=== PATIENT | male | born 1985 | race Caucasian/White ===

== ENCOUNTER 2022-08-29 06:46 | Inpatient (IN) | payer OTHER, SELFPAY ==
[2022-08-29] VITALS (8 sets, daily range): BP systolic 114–168; BP diastolic 68–89; PULSE 72–98; RESP 16–20; TEMP 36.3–37; O2SAT 97–100; BMI 21.6
--- NOTE | ~2022-08-29 | CT_ITS ---
EXAMINATION: CT HEAD WITHOUT CONTRAST CLINICAL INFORMATION: Mental status change COMPARISON: None available. TECHNIQUE: Contiguous axial imaging was performed from the skull base to vertex without intravenous administration of contrast. This CT examination was performed using dose optimization techniques as appropriate, variously including the following: *Automated exposure control *Adjustment of mA and/or kV according to patient size (this includes techniques or standardized protocols for targeted exams where dose is matched to indication/reason for exam; i.e. extremities or head) *Use of iterative reconstruction technique DLP: 709 mGy-cm FINDINGS: No intracranial hemorrhage is identified. No significant mass effect or midline structure shift is seen. No abnormal extra-axial fluid collection is noted. The lerner-white matter interface is maintained. The ventricles, sulci, and cisterns appear unremarkable. The calvarium is intact. There is some edema seen within the left frontal scalp. Pterygoid plates intact. Temporomandibular joints appear unremarkable. Visualized paranasal sinuses and mastoid air cells appear unremarkable. CT/CT head/brain wo IV con IMPRESSION: No acute intracranial pathology.
--- NOTE | 2022-08-29 07:09 | ED_ITS ---
HPI - Psych General Chief Complaint: Psychiatric Symptoms Stated Complaint: hallucinations Time Seen by Provider: 08/29/22 06:49 History of Present Illness HPI Narrative: This is 37 yo man with alcohol abuse sent by [facility] because hallucination,denies SI and HI.Arrive awake and alert pleasent,coopoerative with stable VS,the hallucination are visual,he has been at [facility] 2 days complaint: hallucinations Onset (ago): day(s) (1) Duration: intermittent History of same: No Relieving factors: none Exacerbating factors: none Context: other (last drinl 5 Days ago) Associated psychiatric symptoms: none Related Data Home Medications Medication Instructions Recorded Confirmed No Known Home Meds 08/29/22 08/29/22 Allergies Allergy/AdvReac Type Severity Reaction Status Date / Time No Known Allergies Allergy Verified 08/29/22 07:10 Review of Systems Constitutional: Constitutional: Reports no additional constitutional complaints ENT: Reports system reviewed and no additional complaints, except as documented Cardiovascular: Cardiovascular: Denies irregular heart rhythm and Denies dyspnea Respiratory: Respiratory: Denies dyspnea Gastrointestinal: Gastrointestinal: Denies abdominal pain, Denies nausea and Denies vomiting Musculoskeletal: Musculoskeletal: Reports no additional musculoskeletal complaints [facility] Past Medical History [facility] Narrative: Alcohol Use disorder Social History Social History Alcohol intake: current Alcohol intake frequency: 0-2 drinks per day Alcohol ty pe: beer Smoked in Last 30 Days: Yes Use of substances other than those prescribed or required for medical reasons: No Advance Directives: No Physical Exam Vital Signs: Vital Signs: Last Vital Signs Temp 98.5 F 08/29/22 06:50 Pulse 87 08/29/22 10:42 Resp 18 08/29/22 10:42 BP 134/89 08/29/22 10:42 Pulse Ox 100 08/29/22 10:42 O2 Del Method Room Air 08/29/22 10:42 BMI result Body Mass Index 21.6 Const: General: cooperative, comfortable, no acute distress, well developed, alert, awake and Physically active Nutritional Appearance: average body habitus and well nourished Orientation/consciousness: patient oriented x3 Limitations: no limitations HEENT: Head: Yes normal to inspection General nose exam: Normal external nose present Face and sinus: Yes normal facial exam Neck: Neck: Yes normal visual inspection and Yes full ROM Thyroid: Thyroid normal Chest: Chest palpation & inspection: normal inspection of the chest Resp: Effort & Inspection: normal respiratory effort Auscultation: clear to auscultation bilaterally Cardio: Jugular venous distension: no JVD Rate: regular rate Rhythm: regular rhythm GI: Inspection: Yes normal to inspection Palpation (GI): Soft to palpation, not firm, nontender and no guarding Auscultation: normal bowel sounds Skin: General skin exam: no rashes or lesions noted and elasticity normal Neuro: General: patient oriented x3 Cranial nerves: Yes CN's II-XII intact bilaterally Course Reevaluation(s) Reevaluation #1: getting more agitated ,uncoperative ,transfererred to core ED,will start phenobarbital Time: 11:52 Medications Administered Discontinued Medications Generic Name Dose Route Start Last Admin Trade Name Freq PRN Reason Stop Dose Admin Diphenhydramine HCl 50 mg 08/29/22 11:43 08/29/22 11:51 Diphenhydramine Hcl 50 Mg/Ml Vial IM 08/29/22 11:44 50 mg ONCE ONE Administration Haloperidol Lactate 10 mg 08/29/22 11:43 08/29/22 11:51 Haloperidol Lactate 5 Mg/Ml Vial IM 08/29/22 11:44 10 mg STAT STA Administration Lorazepam 1 mg 08/29/22 07:15 08/29/22 07:24 Lorazepam 1 Mg Tablet PO 08/29/22 07:16 1 mg ONCE ONE Administration Medical Decision Making Medical Decision Making [facility] Narrative: pt presented with visual hallucination,stable Vital sign,this could be part of alcohol detox,he is no SI,no HI ,vital stable,will checl labs and consult crisis team Differential Diagnosis Differential Diagnoses: The differential diagnosis associated with the pr esentation includes Alcohol withdrawal/detox/psycosis Lab Data 08/29/22 07:30 08/29/22 07:30 Labs: Lab Results 08/29/22 08/29/22 08/29/22 Range/Units 07:10 07:30 07:30 WBC 5.8 (4.8-10.8) X10*3/uL RBC 3.82 L (4.60-5.80) X10*6/uL Hgb 11.9 L (14.0-18.0) g/dl Hct 35.5 L (42.0-52.0) % MCV 92.9 (80.0-98.0) fL MCH 31.2 (27.0-33.0) pg MCHC 33.5 (31.0-36.0) g/dl RDW 13.7 (11.0-16.0) % Plt Count 160 (160-400) X10*3/uL MPV 11.4 (9.4-12.4) fL Immature Gran % (Auto) 0.3 (0.0-0.4) % Neut % (Auto) 60.7 (45-73) % Lymph % (Auto) 20.1 (20-40) % [place] % (Auto) 13.9 H (2-11) % Eos % (Auto) 3.8 (0-4) % Baso % (Auto) 1.2 (0-2) % Lymph # (Auto) 1.2 (1.2-4.9) X10*3/uL [place] # (Auto) 0.8 (0.1-1.2) X10*3/uL Eos # (Auto) 0.2 (0.0-0.4) X10*3/uL Baso # (Auto) 0.1 (0.0-0.2) X10*3/uL Abs Immat Gran (auto) 0.02 (0.00-0.03) X10*3/uL Absolute Neuts (auto) 3.5 (2.0-8.3) x10*3/uL Absolute Nucleated RBC 0.000 (0.0-0.012) X10*3/uL Nucleated RBC % (auto) 0.0 (0.0-0.2) /100WBC Sodium 136 (135-145) mmol/L Potassium 4.3 (3.3-5.1) mmol/L Chloride 105 (96-108) mmol/L Carbon Dioxide 21 L (22-29) mmol/L Anion Gap 14 (12-20) BUN 10 (9-16) mg/dL Creatinine 0.70 (0.5-1.4) mg/dL Estim Creat Clear Calc 145.0 Estimated GFR > 60 Random Glucose 93 (60-115) mg/dL Calcium 9.0 (8.4-10.2) mg/dL Total Bilirubin 2.4 H (0.0-1.0) mg/dL AST 188 H (5-37) U/L ALT 79 H (0-40) U/L Alkaline Phosphatase 218 H (39-117) U/L Total Protein 7.9 (6.5-8.0) g/dL Albumin 4.0 (3.5-5.0) g/dL Urine Color Urine Appearance Urine pH (5.0-9.0) Ur Specific [place] (1.005-1.025) Urine Protein (Neg-Trace) mg/dL Urine Glucose (UA) (Negative) mg/dL Urine Ketones (Negative) mg/dL Urine Blood (Negative) Urine Nitrite (Negative) Ur Leukocyte Esterase (Negative) Urine RBC (0-2) /HPF Urine WBC (0-5) /HPF Ur Squamous Epith Cells (0-2) /HPF Urine Bacteria (None Seen) Hyaline Casts (0-2) /LPF Urine Opiates Screen (Not Detect) Urine Fentanyl Screen (Not Detect) Ur Barbiturates Screen (Not Detect) Ur Phencyclidine Scrn (Not Detect) Ur Amphetamines Screen (Not Detect) U Benzodiazepines Scrn (Not Detect) Urine Cocaine Screen (Not Detect) U Marijuana (THC) Screen (Not Detect) Ethyl Alcohol < 10 mg/dL COVID-19 (NEELAM) Negative (Negative) COVID-19 Clin Com See Note 08/29/22 08/29/22 Range/Units 09:09 09:09 WBC (4.8-10.8) X10*3/uL RBC (4.60-5.80) X10*6/uL Hgb (14.0-18.0) g/dl Hct (42.0-52.0) % MCV (80.0-98.0) fL MCH (27.0-33.0) pg MCHC (31.0-36.0) g/dl RDW (11.0-16.0) % Plt Count (160-400) X10*3/uL MPV (9.4-12.4) fL Immature Gran % (Auto) (0.0-0.4) % Neut % (Auto) (45-73) % Lymph % (Auto) (20-40) % [place] % (Auto) (2-11) % Eos % (Auto) (0-4) % Baso % (Auto) (0-2) % Lymph # (Auto) (1.2-4.9) X10*3/uL [place] # (Auto) (0.1-1.2) X10*3/uL Eos # (Auto) (0.0-0.4) X10*3/uL Baso # (Auto) (0.0-0.2) X10*3/uL Abs Immat Gran (auto) (0.00-0.03) X10*3/uL Absolute Neuts (auto) (2.0-8.3) x10*3/uL Absolute Nucleated RBC (0.0-0.012) X10*3/uL Nucleated RBC % (auto) (0.0-0.2) /100WBC Sodium (135-145) mmol/L Potassium (3.3-5.1) mmol/L Chloride (96-108) mmol/L Carbon Dioxide (22-29) mmol/L Anion Gap (12-20) BUN (9-16) mg/dL Creatinine (0.5-1.4) mg/dL Estim Creat Clear Calc Estimated GFR Random Glucose (60-115) mg/dL Calcium (8.4-10.2) mg/dL Total Bilirubin (0.0-1.0) mg/dL AST (5-37) U/L ALT (0-40) U/L Alkaline Phosphatase (39-117) U/L Total Protein (6.5-8.0) g/dL Albumin (3.5-5.0) g/dL Urine Color Dark Yellow Urine Appearance Clear Urine pH 8.0 (5.0-9.0) Ur Specific [place] 1.020 (1.005-1.025) Urine Protein Negative (Neg-Trace) mg/dL Urine Glucose (UA) Negative (Negative) mg/dL Urine Ketones Negative (Negative) mg/dL Urine Blood Negative (Negative) Urine Nitrite Negative (Negative) Ur Leukocyte Esterase Trace H (Negative) Urine RBC 0-2 (0-2) /HPF Urine WBC 0-5 (0-5) /HPF Ur Squamous Epith Cells 0-2 (0-2) /HPF Urine Bacteria None Seen (None Seen) Hyaline Casts 0-2 (0-2) /LPF Urine Opiates Screen Not Detected (Not Detect) Urine Fentanyl Screen Not Detected (Not Detect) Ur Barbiturates Screen Not Detected (Not Detect) Ur Phencyclidine Scrn Not Detected (Not Detect) Ur Amphetamines Screen Not Detected (Not Detect) U Benzodiazepines Scrn POSITIVE H (Not Detect) Urine Cocaine Screen POSITIVE H (Not Detect) U Marijuana (THC) Screen POSITIVE H (Not Detect) Ethyl Alcohol mg/dL COVID-19 (NEELAM) (Negative) COVID-19 Clin Com Discharge Plan Discharge Clinical Impression: Alcohol withdrawal Patient Disposition: Admitted As Inpatient Interventions: [place]-Suicide Risk Severity Scale Last Done: 08/29/22 06:59
[2022-08-29] MEDS: LORazepam 1 MG TABLET PO ×2 (07:24→18:19)
[2022-08-29 07:29] LABS: COVID-19 Test Negative (Negative); IDNOW Serial# 08D9AD1C
[2022-08-29 07:33] LABS: MANUAL DIFF FLAG NO
[2022-08-29 07:36] LABS: Basophils Absolute Auto 0.1 X10*3/uL (0.0-0.2); Basophils Percent Auto 1.2 % (0-2); Eosinophils Absolute Auto 0.2 X10*3/uL (0.0-0.4); Eosinophils Percent Auto 3.8 % (0-4); Hematocrit 35.5 % (42.0-52.0); Hemoglobin 11.9 g/dl (14.0-18.0); Imm Gran Abs Auto 0.02 X10*3/uL (0.00-0.03); Imm Gran Pct Auto 0.3 % (0.0-0.4); Lymphocytes Absolute Auto 1.2 X10*3/uL (1.2-4.9); Lymphocytes Percent Auto 20.1 % (20-40); Mean Corpuscular HGB Conc 33.5 g/dl (31.0-36.0); Mean Corpuscular Hemoglobin 31.2 pg (27.0-33.0); Mean Corpuscular Volume 92.9 fL (80.0-98.0); Mean Platelet Volume 11.4 fL (9.4-12.4); Monocytes Absolute Auto 0.8 X10*3/uL (0.1-1.2); Monocytes Percent Auto 13.9 % (2-11); Neutrophils Absolute Auto 3.5 x10*3/uL (2.0-8.3); Neutrophils Percent Auto 60.7 % (45-73); Platelet Count 160 X10*3/uL (160-400); Red Blood Count 3.82 X10*6/uL (4.60-5.80); Red Cell Distribution Width 13.7 % (11.0-16.0); White Blood Count 5.8 X10*3/uL (4.8-10.8)
--- NOTE | 2022-08-29 07:41 | PC.NURSE ---
Pt is alert and oriented. Appears sl tremors but reports feeling great denies hallucinations, SI or HI at this time. Last ETOH last Thursday, sent from [facility]. Denies home meds. [facility] called to confirm meds as they confirm pt had no home meds just taking PRN meds given by facility for detox. Spoke to Valentina HIGH. Pt is calm and cooperative, eating breakfast at this time
[2022-08-29 08:07] LABS: Alanine Aminotransferase 79 U/L (0-40); Alkaline Phosphatase 218 U/L (39-117); Anion Gap 14 (12-20); Aspartate Amino Transferase 188 U/L (5-37); Bilirubin Total 2.4 mg/dL (0.0-1.0); Blood Urea Nitrogen 10 mg/dL (9-16); Carbon Dioxide 21 mmol/L (22-29); Chloride 105 mmol/L (96-108); Estimated Glomerular Filt Rate > 60; Ethanol < 10 mg/dL; Glucose Random 93 mg/dL (60-115); Potassium 4.3 mmol/L (3.3-5.1); Sodium 136 mmol/L (135-145); Total Protein 7.9 g/dL (6.5-8.0)
--- NOTE | 2022-08-29 08:33 | PC.NURSE ---
Addendum entered by Homa Adames 08/29/22 08:49: Dr Martinez to bedside. CIWA 17. Plan for CT scan and will obtain UA when able Original Note: Pt noted to be responding to internal stimuli, talking to self in room. Noted to look and see things not there. VSS. Dr Martinez aware. [facility] on arrival as [facility] just prior to pt departure from facility.
[2022-08-29 09:19] LABS: Appearance Urine Clear; Color Urine Dark Yellow; Glucose Urine UA Negative (Negative); Leukocyte Esterase Urine Trace (Negative); Nitrite Urine Negative (Negative); UMIC TRIGGER UACC YES; Urine Blood Negative (Negative); Urine Ketones Negative (Negative); Urine Protein Negative (Neg-Trace)
[2022-08-29 09:24] LABS: Bacteria Urine None Seen (None Seen); Hyaline Casts Urine 0-2 /LPF (0-2); RBC Urine 0-2 /HPF (0-2); Squamous Epithelial Cell Urine 0-2 /HPF (0-2); WBC Urine 0-5 /HPF (0-5)
[2022-08-29 09:33] LABS: Amphetamine Screen Urine Not Detected (Not Detect); Barbiturates, Urine Not Detected (Not Detect); Benzodiazepines Screen Urine POSITIVE (Not Detect); Cannabinoid Screen Urine POSITIVE (Not Detect); Cocaine Screen Urine POSITIVE (Not Detect); Fentanyl, urine Not Detected (Not Detect); Opiate Screen Urine Not Detected (Not Detect); Phencyclidine Screen Urine Not Detected (Not Detect)
--- NOTE | 2022-08-29 10:42 | PC.NURSE ---
Worsening hallucinations, agitation and tremors. Vitals remains stable. Dr Christian aware, plan to tx to Main ED with IV meds and phenobarb
--- NOTE | 2022-08-29 11:02 | MHC.CARE ---
CARE Team spoke with ANILA Luther who reported Pt is going to receive IV intervention for withdrawal symptoms. Per [facility] concerns regarding delirium related to alcohol withdrawal. CARE Team spoke with Pt briefly due to presenting with some frustrations being in the ED. Pt reported he was at [facility] detox for the past 5 days, today was suppose to be discharge today and his sister Tonya sent him to the ED. Pt then stated Tonya is at the nursing station, look she is right there . Note Pt was only at [facility] x 2 days and his sister Tonya is not in the ED BH Pod. CARE Team notified explosive expertANILA Parmar regarding Pts ED personation.
--- NOTE | 2022-08-29 11:37 | PC.NURSE ---
Pt moved to main ED for IV intervention and monitoring.
[2022-08-29] MEDS: diphenhydrAMINE HCL 50 MG/ML VIAL IM (11:51)
[2022-08-29] MEDS: Haloperidol Lactate 5 MG/ML VIAL 10 MG IM (11:51)
--- NOTE | 2022-08-29 12:00 | PC.NURSE ---
patient given IM benadryl and haldol. CIWA score 16. MD Martinez at the bedside.
[2022-08-29] MEDS: PHENobarbitaL sodium 130 MG/ML IM ONCE 282.1 MG IM (12:11)
--- NOTE | 2022-08-29 12:38 | PHA.MEDREC ---
Pharmacy Consult ? Medication Reconciliation Pharmacy has completed the medication reconciliation. See note: Pt is alert and oriented. Appears sl tremors but reports feeling great denies hallucinations, SI or HI at this time. Last ETOH last Thursday, sent from [facility]. Denies home meds. [facility] called to confirm meds as they confirm pt had no home meds just taking PRN meds given by facility for detox. Spoke to Valentina HIGH. Pt is calm and cooperative, eating breakfast at this time Aldo
--- NOTE | 2022-08-29 13:31 | PM.IMHP ---
History of Present Illness Date of Service: 08/29/22 Attending physician on admission: Arnaldo Angela Chief Complaint: Hallucinations Pt is a 37-year-old male with an unknown PMH not on any known meds who [facility]. Apparently pt has been at [facility] for 2 days for alcohol detox. Pt is sleeping when approached for interview and becomes agitated, restless, and disruptive after waking. Pt refuses to answer any questions or allow a physical exam. In the ED patient was afebrile with stable vital signs. Labs were significant for normocytic anemia of H&H 11.9/35.5, total bilirubin 2.4, AST 188, ALT 79, alk-phos 218. UA negative for UTI. Tox screen positive for benzos, cocaine, marijuana. Ethyl alcohol <10. CT?of head found no acute intracranial pathology. Pt was treated with lorazepam, Haldol, diphenhydramine, and placed on phenobarb protocol. Pt will be admitted to the hospital for treatment and further evaluation of acute onset of hallucinations likely secondary to acute alcohol withdrawal. Review of Systems Review of Systems: Pt refused to answer any questions PMFSH Social History Alcohol intake: current Alcohol intake frequency: 0-2 drinks per day Alcohol type: beer Smoked in Last 30 Days: Yes Use of substances other than those prescribed or required for medical reasons: No Advance Directives: No Advance Directives Information Provided: No Meds Allergies Allergy/AdvReac Type Severity Reaction Status Date / Time No Known Allergies Allergy Verified 08/29/22 07:10 Active Medications: Current Medications Pharmacy Consult (Consult Rx Etoh Phenob Im/Po) 1 each MISCELLANE ONCE PRN; Protocol PRN Reason: Consult order Pharmacy Consult (Consult Rx Perform Med Rec) 1 each MISCELLANE ONCE PRN PRN Reason: Consult order Phenobarbital (Phenobarbital 15 Mg Tablet) 45 mg PO BID DG; Protocol Stop: 08/31/22 09:01 Phenobarbital (Phenobarbital 15 Mg Tablet) 15 mg PO BID DG; Protocol Stop: 09/02/22 09:01 Phenobarbital (Phenobarbital 15 Mg Tablet) 15 mg PO DAILY DG; Protocol Stop: 09/04/22 09:01 Phenobarbital Sodium (Phenobarbital Sodium 130 Mg/Ml Vial Im Q3hx2) 211.9 mg IM Q3H DG; Protocol Stop: 08/29/22 17:31 Home Medications Medication Instructions Recorded Confirmed Last Taken Type No Known Home Meds 08/29/22 08/29/22 Unknown History Physical Exam Vital Signs and Narrative: Vital Signs: Last Vital Signs Temp 98.5 F 08/29/22 06:50 Pulse 92 08/29/22 11:51 Resp 20 08/29/22 11:51 BP 134/82 08/29/22 11:51 Pulse Ox 97 08/29/22 11:51 O2 Del Method Room Air 08/29/22 11:51 BMI result Body Mass Index 21.6 Pt refused formal exam. Pt seem with mild tremors in upper extremities Pt agitated, restless, and exhibiting disruptive behaviors Results Labs 08/29/22 07:30 08/29/22 07:30 Labs: Laboratory Results - last 24 hr 08/29/22 08/29/22 08/29/22 07:10 07:30 07:30 MCV 92.9 MCH 31.2 MCHC 33.5 RDW 13.7 Plt Count 160 MPV 11.4 Immature Gran % (Auto) 0.3 Neut % (Auto) 60.7 Lymph % (Auto) 20.1 [place] % (Auto) 13.9 H Eos % (Auto) 3.8 Baso % (Auto) 1.2 Lymph # (Auto) 1.2 [place] # (Auto) 0.8 Eos # (Auto) 0.2 Baso # (Auto) 0.1 Abs Immat Gran (auto) 0.02 Absolute Neuts (auto) 3.5 Absolute Nucleated RBC 0.000 Nucleated RBC % (auto) 0.0 Anion Gap 14 Estim Creat Clear Calc 145.0 Estimated GFR > 60 Random Glucose 93 Calcium 9.0 Total Bilirubin 2.4 H AST 188 H ALT 79 H Alkaline Phosphatase 218 H Total Protein 7.9 Albumin 4.0 Urine Color Urine Appearance Urine pH Ur Specific [place] Urine Protein Urine Glucose (UA) Urine Ketones Urine Blood Urine Nitrite Ur Leukocyte Esterase Urine RBC Urine WBC Ur Squamous Epith Cells Urine Bacteria Hyaline Casts Urine Opiates Screen Urine Fentanyl Screen Ur Barbiturates Screen Ur Phencyclidine Scrn Ur Amphetamines Screen U Benzodiazepines Scrn Urine Cocaine Screen U Marijuana (THC) Screen Ethyl Alcohol < 10 COVID-19 (NEELAM) Negative COVID-19 Clin Com See Note 08/29/22 08/29/22 09:09 09:09 MCV MCH MCHC RDW Plt Count MPV Immature Gran % (Auto) Neut % (Auto) Lymph % (Auto) [place] % (Auto) Eos % (Auto) Baso % (Auto) Lymph # (Auto) [place] # (Auto) Eos # (Auto) Baso # (Auto) Abs Immat Gran (auto) Absolute Neuts (auto) Absolute Nucleated RBC Nucleated RBC % (auto) Anion Gap Estim Creat Clear Calc Estimated GFR Random Glucose Calcium Total Bilirubin AST ALT Alkaline Phosphatase Total Protein Albumin Urine Color Dark Yellow Urine Appearance Clear Urine pH 8.0 Ur Specific [place] 1.020 Urine Protein Negative Urine Glucose (UA) Negative Urine Ketones Negative Urine Blood Negative Urine Nitrite Negative Ur Leukocyte Esterase Trace H Urine RBC 0-2 Urine WBC 0-5 Ur Squamous Epith Cells 0-2 Urine Bacteria None Seen Hyaline Casts 0-2 Urine Opiates Screen Not Detected Urine Fentanyl Screen Not Detected Ur Barbiturates Screen Not Detected Ur Phencyclidine Scrn Not Detected Ur Amphetamines Screen Not Detected U Benzodiazepines Scrn POSITIVE H Urine Cocaine Screen POSITIVE H U Marijuana (THC) Screen POSITIVE H Ethyl Alcohol COVID-19 (NEELAM) COVID-19 Clin Com Imaging Radiologist's Impressions: Impressions Head CT 08/29/22 09:00 IMPRESSION: No acute intracranial pathology. Assessment and Plan (1) Alcohol withdrawal: Status: Acute Plan Pt is a 37-year-old male with an unknown PMH not on any known meds who was sent to the ED via EMS by [facility] for visual hallucinations. Apparently pt has been at [facility] for 2 days for alcohol detox. Acute alcohol withdrawal Pt with mild tremors, visual hallucinations Continue Phenobarb protocol Daily multivitamin, folic acid 1mg, Thiamine 100 mg daily IV Protonix Follow lytes, Mag, BMP IVF: lactated ringers CIWA scale Seizure protocols Addiction medicine consult Admit to telemetry Haldol, Ativan prn for agitation/anxiety/restlessness Transaminitis Repeat LFTs tomorrow Check hepatitis panel, coags Full Code Attending:?Dr. Angela DVT Prophylaxis: Lovenox Pt will require a hospitalization of at least two nights for treatment of?acute alcohol withdrawal with hallucinations. Time Spent With Patient Time: Total time managing care of this patient today ____ minutes. Quality Stroke Does the patient have a stroke diagnosis?: No VTE Prior VTE?: No VTE Risk Level:: Medical - moderate - high VTE Device Contraindication: Treatment Not Indicated VTE Drug Contraindication: N/A - Med Ordered
[2022-08-29] MEDS: Lactated Ringers 1,000 ML 100 ML IVCONT (15:29)
[2022-08-29] MEDS: PHENobarbitaL sodium 130 MG/ML VIAL IM Q3Hx2 211.9 MG IM ×2 (15:29→17:06)
[2022-08-29] MEDS: Pantoprazole Sodium 40 MG/10 ML VIAL IVPUSH (15:29)
[2022-08-29 19:13] LABS: INTERNATIONAL NORM RATIO 1.1 (0.9-1.1); Prothrombin Time 12.3 SEC (10.0-13.1)
[2022-08-29 19:15] LABS: Partial Thromboplastin Time 36.7 SEC (26.0-36.4)
[2022-08-29 19:29] LABS: Alanine Aminotransferase 99 U/L (0-40); Albumin Level 3.9 g/dL (3.5-5.0); Alkaline Phosphatase 199 U/L (39-117); Anion Gap 12 (12-20); Aspartate Amino Transferase 247 U/L (5-37); Bilirubin Total 2.7 mg/dL (0.0-1.0); Blood Urea Nitrogen 8 mg/dL (9-16); Calcium 8.9 mg/dL (8.4-10.2); Carbon Dioxide 24 mmol/L (22-29); Chloride 106 mmol/L (96-108); Creatinine Clr Calc Pharmacy 130.1; Estimated Glomerular Filt Rate > 60; Glucose Random 120 mg/dL (60-115); Potassium 3.8 mmol/L (3.3-5.1); Sodium 138 mmol/L (135-145); Total Protein 7.3 g/dL (6.5-8.0)
[2022-08-29] MEDS: PHENobarbitaL 15 MG TABLET 45 MG PO (21:22)
[2022-08-29] MEDS: 0.9 % Sodium Chloride Flush 3 ML SYRINGE IVFLUSH (23:00)
[2022-08-30 03:32] VITALS: BP 107/66; PULSE 71; RESP 16; TEMP 36.9; O2SAT 98
[2022-08-30] MEDS: Lactated Ringers 1,000 ML 100 ML IVCONT ×2 (04:54→14:37)
[2022-08-30] MEDS: Pantoprazole Sodium 40 MG/10 ML VIAL IVPUSH (05:59)
[2022-08-30 07:50] LABS: B Type Natriuretic Peptide 43 pg/mL (<100)
[2022-08-30 08:00] VITALS: BP 136/87; PULSE 88; RESP 16; TEMP 37.1; O2SAT 98
[2022-08-30] MEDS: Thiamine HCL 100 MG TABLET PO (08:44)
[2022-08-30] MEDS: 0.9 % Sodium Chloride Flush 3 ML SYRINGE IVFLUSH (08:44)
[2022-08-30] MEDS: Multivitamin TABLET 1 TAB PO (08:44)
[2022-08-30] MEDS: PHENobarbitaL 15 MG TABLET 45 MG PO ×2 (08:44→21:37)
[2022-08-30] MEDS: Folic Acid 1 MG TABLET PO (08:44)
--- NOTE | 2022-08-30 10:03 | HO.PM.IMPN ---
Subjective Subjective Date of Service: 08/30/22 Interval History: still shaky Physical Exam Vital Signs: Vital Signs: Last Vital Signs Temp 98.7 F 08/30/22 08:00 Pulse 88 08/30/22 08:00 Resp 16 08/30/22 08:00 BP 136/87 08/30/22 08:00 Pulse Ox 98 08/30/22 08:00 O2 Del Method Room Air 08/30/22 08:00 BMI result Body Mass Index 21.6 shaky, alert Objective Data Active Medications Acetaminophen (Acetaminophen 325 Mg Tablet) 650 mg PO Q6H PRN PRN Reason: Pain, Mild (Pain Scale 1-3) Enoxaparin Sodium (Enoxaparin Sodium 40 Mg/0.4 Ml Syringe) 40 mg SUBCUT Q24H [facility] Last Admin: 08/29/22 15:57 Dose: Not Given Documented By: SCOTTY Non-Admin Reason: Patient Refused Folic Acid (Folic Acid 1 Mg Tablet) 1 mg PO DAILY [facility] Stop: 09/02/22 08:59 Last Admin: 08/30/22 08:44 Dose: 1 mg Documented By: BYRON Lactated Ringer's (Lr) 1,000 mls @ 100 mls/hr IVCONT .Q10H [facility] Last Admin: 08/30/22 04:54 Dose: 100 mls/hr Documented By: LATESHA Multivitamins/Vitamin C (Multivitamin Tablet) 1 tab PO DAILY [facility] Stop: 09/02/22 08:59 Last Admin: 08/30/22 08:44 Dose: 1 tab Documented By: BYRON Ondansetron HCl (Ondansetron Hcl 4 Mg/2 Ml Vial) 4 mg IVPUSH Q8H PRN PRN Reason: Nausea and Vomiting Pantoprazole Sodium (Pantoprazole Sodium 40 Mg/10 Ml Vial) 40 mg IVPUSH BID@0630,1630 [facility] Last Admin: 08/30/22 05:59 Dose: 40 mg Documented By: LATESHA Pharmacy Consult (Consult Rx Etoh Phenob Im/Po) 1 each MISCELLANE ONCE PRN; Protocol PRN Reason: Consult order Pharmacy Consult (Consult Rx Perform Med Rec) 1 each MISCELLANE ONCE PRN PRN Reason: Consult order Phenobarbital (Phenobarbital 15 Mg Tablet) 45 mg PO BID [facility]; Protocol Stop: 08/31/22 09:01 Last Admin: 08/30/22 08:44 Dose: 45 mg Documented By: BYRON Phenobarbital (Phenobarbital 15 Mg Tablet) 15 mg PO BID [facility]; Protocol Stop: 09/02/22 09:01 Phenobarbital (Phenobarbital 15 Mg Tablet) 15 mg PO DAILY [facility]; Protocol Stop: 09/04/22 09:01 Sodium Chloride (0.9 % Sodium Chloride Flush 3 Ml Syringe) 3 ml IVFLUSH QSHIFT [facility] Last Admin: 08/30/22 08:44 Dose: 3 ml Documented By: BYRON Thiamine HCl (Thiamine Hcl 100 Mg Tablet) 100 mg PO DAILY [facility] Stop: 09/02/22 08:59 Last Admin: 08/30/22 08:44 Dose: 100 mg Documented By: BYRON Labs 08/29/22 07:30 08/29/22 18:51 Labs: Laboratory Results - last 24 hr 08/29/22 08/29/22 08/30/22 18:51 18:51 06:11 PT 12.3 INR 1.1 APTT 36.7 H Anion Gap 12 Estim Creat Clear Calc 130.1 Estimated GFR > 60 Random Glucose 120 H Calcium 8.9 Total Bilirubin 2.7 H AST 247 H ALT 99 H Alkaline Phosphatase 199 H B-Natriuretic Peptide 43 Total Protein 7.3 Albumin 3.9 Assessment and Plan (1) Alcohol withdrawal: Status: Acute Plan 37M PMH etoh and polysubstance dependence presented with AMS Alcohol dependence with acute alcohol withdrawal continue phenobarbital, CIWA polysubstance dependence addiction team eval steatohepatitis alcohol related screen for viral hepatitis dvt prophylaxis - lovenox full code reason for continued hospitalization:still in withdrawal Time Spent With Patient Time: Total time managing care of this patient today ____ minutes. Quality Stroke Does the patient have a stroke diagnosis?: No VTE Prior VTE?: No VTE Risk Level:: Medical - moderate - high VTE Device Contraindication: Treatment Not Indicated VTE Drug Contraindication: N/A - Med Ordered
[2022-08-30 11:16] VITALS: BP 128/80; PULSE 80; RESP 20; TEMP 36.3; O2SAT 98
--- NOTE | 2022-08-30 12:39 | MHC.CM.PN ---
PT REPORTS HE LIVES WITH HIS BROTHER AND NEPHEW HE SAYS HE IS INDEPENDENT WITH CARE AND USES A CANE HE REPORTS HE IS COVID [place] DECLINES ASSISTANCE COMPLETING A HCP PT SAYS HIS PCP IS JAMMIE AT [facility], HOWEVER DR TURPIN IS LISTS UNABLE TO CONFIRM PCP PRIOR TO THURSDAY PT REPORTS HE WAS AT [facility] HOWEVER HE IS NOT INTERESTED IN RETURNING HE REPORTS HE WILL DC HOME VIA [facility] TRANSPORT
--- NOTE | 2022-08-30 12:46 | MHC.RECOVRN ---
Met with pt in 485 along with Recovery Manager Functional after consult placed to Addiction Medicine for alcohol use. Pt sitting in bed, awake, alert, easily engages in conversation. Pt frustrated with being forced to be here and not having belongings. Pt discusses what happened yesterday, believes sister was under the desk in the pod. Pt believes hallucinations were due to taking Trazodone while at [facility]. Pt anxious, diaphoretic, slightly tremulous. Pt at times does not make sense, ?withdrawal related. Pt reports drinking 2 beers daily prior to presenting to . Pt does not believe he has AUD. Pt has not received tx in the past for alcohol use. Reports having ceased use on his own many times by weaning down. Pt reports longest period in recovery was 3-4 months. Pts goal is not abstinence, goal is to stay out of bad situations. Pt would like his phone, t/w retrieved from pod, was given to pt. If pt were to receive the rest of his belongings, pt reports desire to discharge from the hospital. T/w educated pt on risks associated with alcohol withdrawal and encouraged pt to remain in the hospital for treatment. Pt provided with recovery resources and support information, denies questions or concerns at this time.
[2022-08-30 15:58] VITALS: BP 145/65; PULSE 65; RESP 20; O2SAT 96
[2022-08-30 19:10] VITALS: BP 109/68; PULSE 84; RESP 14; TEMP 37.2; O2SAT 99
[2022-08-30 22:58] VITALS: BP 117/78; PULSE 79; RESP 16; TEMP 36.9; O2SAT 99
[2022-08-31] MEDS: Lactated Ringers 1,000 ML 100 ML IVCONT (00:19)
[2022-08-31 03:18] VITALS: BP 121/77; PULSE 86; RESP 18; TEMP 37.1; O2SAT 99
[2022-08-31 06:56] LABS: Hematocrit 37.2 % (42.0-52.0); Hemoglobin 12.3 g/dl (14.0-18.0); Mean Corpuscular HGB Conc 33.1 g/dl (31.0-36.0); Mean Corpuscular Hemoglobin 31.5 pg (27.0-33.0); Mean Corpuscular Volume 95.1 fL (80.0-98.0); Mean Platelet Volume 11.7 fL (9.4-12.4); Platelet Count 212 X10*3/uL (160-400); Red Blood Count 3.91 X10*6/uL (4.60-5.80); Red Cell Distribution Width 14.2 % (11.0-16.0)
[2022-08-31 07:08] LABS: WBC ABN SCTR FOR CBC 1
[2022-08-31 07:09] LABS: White Blood Count 6.1 X10*3/uL (4.8-10.8)
[2022-08-31 07:11] LABS: Alanine Aminotransferase 180 U/L (0-40); Albumin Level 3.9 g/dL (3.5-5.0); Alkaline Phosphatase 190 U/L (39-117); Anion Gap 11 (12-20); Aspartate Amino Transferase 276 U/L (5-37); Bilirubin Direct 0.7 mg/dL (0.0-0.5); Bilirubin Total 1.5 mg/dL (0.0-1.0); Blood Urea Nitrogen 6 mg/dL (9-16); Calcium 9.3 mg/dL (8.4-10.2); Carbon Dioxide 28 mmol/L (22-29); Chloride 103 mmol/L (96-108); Creatinine Clr Calc Pharmacy 135.4; Estimated Glomerular Filt Rate > 60; Glucose Fasting 91 mg/dL (60-99); Potassium 4.1 mmol/L (3.3-5.1); Sodium 138 mmol/L (135-145); Total Protein 7.4 g/dL (6.5-8.0)
[2022-08-31 07:26] VITALS: BP 122/79; PULSE 78; RESP 20; TEMP 36.5; O2SAT 100
--- NOTE | 2022-08-31 08:19 | P.DS_ITS ---
DS: Providers Provider Date of Service: 08/31/22 Date of admission: 08/29/22 13:57 Primary care physician: Manny Segal MD Consults: 08/29/22 07:04 Consult to Care Team Stat Comment: Reason for consultation: 08/29/22 14:50 Addiction Medicine Routine Consulting Provider: Addiction Covering Reason for consultation: Alcohol withdrawal DS: Diagnosis Discharge Diagnosis (1) Alcohol withdrawal: Status: Acute DS: Summary Hospital Course Hospital Course: from initial hpi: 37-year-old male with an unknown PMH not on any known meds who was sent to the ED via EMS by [facility] for visual hallucinations. Apparently pt has been at [facility] for 2 days for alcohol detox. Pt is sleeping when approached for interview and becomes agitated, restless, and disruptive after waking. Pt refuse s to answer any questions or allow a physical exam. In the ED patient was afebrile with stable vital signs. Labs were significant for normocytic anemia of H&H 11.9/35.5, total bilirubin 2.4, AST 188, ALT 79, alk-phos 218.? UA negative for UTI. Tox screen positive for benzos, cocaine, marijuana.? Ethyl alcohol <10. CT?of head found no acute intracranial pathology. Pt was treated with lorazepam, Haldol, diphenhydramine, and placed on phenobarb protocol. Pt will be admitted to the hospital for treatment and further evaluation of acute onset of hallucinations likely secondary to acute alcohol withdrawal. hospital course: Patient was admitted for alcohol dependence with acute alcohol withdrawal. He was treated phenobarbital and haldol with significant improvement. Patient with minimal symptoms at time discharge. Noted to have alcoholic steatohepatitis with likely small component of acute alcoholic hepatitis. Complete alcohol cessation is recommended. Viral hepatitis studies were drawn and are pending and should be followed up as outpatient. For his polysubstance dependence drug use cessation was counseled. Time Spent with Patient Time attestation: Total time managing care of this patient today ____ minutes. Discharge coordination time: Greater than 30 minutes Quality: Safe Use of Opioids Does Pt have an Active Cancer Diagnosis on the Problem List?: No Quality: Stroke Does the patient have a stroke diagnosis?: No Physical Exam Vital Signs: Vital Signs: Last Vital Signs Temp 97.7 F 08/31/22 07:26 Pulse 78 08/31/22 07:26 Resp 20 08/31/22 07:26 BP 122/79 08/31/22 07:26 Pulse Ox 100 08/31/22 07:26 O2 Del Method Room Air 08/31/22 07:26 BMI result Body Mass Index 21.6 General: AO X 3, no acute distress Resp: CTA bilateral, no accessory muscles used CVS: S1,S2,RRR GI: soft, non tender, non distended Neuro: motor grossly intact, alert Psych: appropriate affect, appropriate insight DS: Data Data Completed and Pending Labs on day of discharge: Laboratory Results - last 24 hr 08/31/22 08/31/22 06:32 06:32 WBC 6.1 RBC 3.91 L Hgb 12.3 L Hct 37.2 L MCV 95.1 MCH 31.5 MCHC 33.1 RDW 14.2 Plt Count 212 D MPV 11.7 Absolute Nucleated RBC 0.000 Nucleated RBC % (auto) 0.0 Sodium 138 Potassium 4.1 Chloride 103 Carbon Dioxide 28 Anion Gap 11 L BUN 6 L Creatinine 0.75 Estim Creat Clear Calc 135.4 Estimated GFR > 60 Fasting Glucose 91 Calcium 9.3 Total Bilirubin 1.5 H Direct Bilirubin 0.7 H AST 276 H ALT 180 H Alkaline Phosphatase 190 H Total Protein 7.4 Albumin 3.9 Discharge Plan Discharge Anticipated Discharge Date/Time: 08/31/22 08:18 Patient Disposition: Home, Self-Care Discharge Diagnosis: etoh withdrawal Referrals: Manny Segal MD [Primary Care Provider] - 1 Week Discharge Medications: No Action No Known Home Meds Discharge Orders: Discharge Order (Routine); Ordered 08/31/22 Ordered By: Arnaldo Angela Diet: Advance to usual diet Activity on Discharge: As tolerated Stand Alone Forms: Patient Portal Discharge page Care Plan Goals: avoid etoh/drug related medical issues Health Concerns: etoh and polysubstance dependence Plan of Treatment: avoid all alcohol and drugs Assessment: see above
[2022-08-31] MEDS: Folic Acid 1 MG TABLET PO (09:01)
[2022-08-31] MEDS: Multivitamin TABLET 1 TAB PO (09:01)
[2022-08-31] MEDS: Thiamine HCL 100 MG TABLET PO (09:01)
[2022-08-31] MEDS: 0.9 % Sodium Chloride Flush 3 ML SYRINGE IVFLUSH (09:01)
[2022-08-31] MEDS: PHENobarbitaL 15 MG TABLET 45 MG PO (09:01)
--- NOTE | 2022-08-31 09:26 | MHC.CM.PN ---
PT WILL DC HOME TODAY WITH NO SERVICES FAMILY TO TRANSPORT
[2022-09-01 08:51] LABS: HBS Num1 14.77 mIU/mL (0-7.99); HBsAGNum1 0.27 S/CO (0.00-0.99); Hepatitis A Antibody IgM 0.26 Index (0-0.79); Hepatitis B Core Antibody Nonreactive (Nonreactive); Hepatitis B Surface Antigen Negative (Negative); ~HepC Num1 0.21 S/CO (0.00-0.79); ~Hepatitis A Antibody IgM Nonreactive (Nonreactive); ~Hepatitis B Surface Antibody REACTIVE (Nonreactive); ~Hepatitis C Antibody Nonreactive (Nonreactive)
== END 2022-08-31 11:25 | disposition home or self-care (01) | DRG 775 ==
LOC: HO.ED 11:51 → HO.EDOVER 15:04 → HO.IMC 16:48
PROVIDERS: Admitting Provider Student in an Organized Health Care Education/Training Program; Emergency Provider Emergency Medicine; PCP Internal Medicine; Visit Provider Internal Medicine
DX: F10.239 Alcohol dependence with withdrawal, unspecified (principal); K70.10 Alcoholic hepatitis without ascites; K70.0 Alcoholic fatty liver; F17.210 Nicotine dependence, cigarettes, uncomplicated; Z71.6 Tobacco abuse counseling; F19.20 Other psychoactive substance dependence, uncomplicated; Z20.822 Contact with and (suspected) exposure to COVID-19
CPT/HCPCS: 36415; 70450; 80048; 80053; 80076; 80307; 81001; 82077; 83880; 85025; 85027; 85610; 85730; 86704; 86706; 86709; 86803; 87340; 87635; 99285; J1200; J1650; J2560

== ENCOUNTER 2024-09-09 09:59 | Outpatient (REF) | payer MEDICAID, SELFPAY ==
--- NOTE | ~2024-09-09 | XR_ITS ---
EXAMINATION: XR CHEST CLINICAL INFORMATION: smoker with new onset wheeze and SOB, no hx of asthma or COPD COMPARISON: None available. TECHNIQUE: 2 views of the chest were obtained. FINDINGS: The cardiac, hilar, and mediastinal contours are normal. The lungs are clear bilaterally. There is no pneumothorax or pleural effusion. There is no focal osseous or soft tissue abnormality. XR/XR chest 2V IMPRESSION: Normal chest. Electronically signed by: Alcides Dueñas MD 09/09/2024 10:58 AM EDT
--- OUTSIDE RECORDS SUMMARY | 2024-09-09 10:26 | XMS_ITS | Clinical Summary ---
Author Organization [facility] Address [address] [place] [address] Phone Care Team Providers Care Blacktop Spreader Name Role Phone Manny Segal MD Primary Care Provider Allergies Active Allergy Reactions Criticality Noted Date Comments Acetaminophen Nausea And Vomiting 02/28/2022 Ibuprofen Nausea And Vomiting 06/18/2023 Medications predniSONE (DELTASONE) 20 mg tablet Take 3 tabs for 3 days, take 2 tabs for 3 days, take 1 tab for 3 days 06/10/2023 Active Active Problems Problem Noted Date Diagnosed Date Alcohol use disorder 09/15/2022 Anxiety and depression 09/15/2022 Alcohol withdrawal seizure w ith complication ([facility] V24, [facility] V28) 06/11/2022 Alcoholic hepatitis without ascites ([facility] V28 ) 06/11/2022 Lumbar disc herniation 12/24/2021 Overview (05/04/2024): Last Assessment & Plan: Patient is s/p right L4-5 far lateral discectomy February [address] Cote. He describes a pinching type low back pain, with symptoms radiating down the lateral right leg. At times he gets numbness tingling on the lateral and under the foot. The right leg will fatigue if he is very active, about 2 times a week his leg will buckle if he is walking a lot. He denies any left leg symptoms. He states after surgery his right leg symptoms were 4/10, the last couple months he is noticing pain that is 8-9/10. Standing increases his pain, he had to stop working at the [employer]. He started prednisone on Thursday, has not seen much improvement over the last 5 or 6 days. Years ago he tried acupuncture, preop he tried right L4, left L3 TFE's. Patient had lumbar spine x-rays 06/10/2023 at [facility] that looks good, no significant degenerative changes or disc space narrowing. I reviewed the images on the computer with the patient. Mr. Erwin has had increased right lateral leg pain for the last couple months, s/p right L4-5 far lateral discectomy February 2022. We talked about trying conservative treatment options like PT, acupuncture, lidocaine patches. We will check lumbar spine MRI with and without contrast to rule out new disc herniation compressing the nerve root. We talked about the importance of working on quitting smoking for the long-term health of his spine. All questions answered. I asked him to call with any concerns or questions. I will follow-up with him after his MRI is completed. Abnormal MRI, lumbar spine 12/17/2021 Overview (05/04/2024): Multilevel bony and discs degenerative changes with broad-based right lateral extrusion of the disc with disc material obliterating the right lateral recess and severe narrowing of the right L4 neural foramen. There is compression of the right L4 nerve root. Asymmetric bulging of the L3-4 disc to the left with compression of the left L3 nerve root and effacement of the right L3 nerve root. Bulging of the L5-S1 disc with effacement of the L5 nerve roots bilaterally. Anemia 12/04/2021 Elevated LFTs 12/04/2021 Surgical History Surgery Date Site/Laterality Comments OTHER SURGICAL HISTORY 03/12/2022 PROCEDURE: AL LAMNOTMY INCL W/DCMPRSN NRV ROOT 1 INTRSPC LUMBR; COMMENT: Right L4-5 far lateral discectomy, Dr. Cote Medical History Medical History Date Comments Alcoholic hepatitis without ascites (CMS/HCC V28) 06/11/2022 DX:Alcoholic hepatitis witho ut ascites Alcohol withdrawal seizure w ith complication (CMS/HCC V24, CMS/HCC V28) 06/11/2022 DX:Alcohol withdrawal seizur e with complication (HCC) Anxiety and depression 09/15/2022 DX:Anxiet y and depression Family History Medical History Relation Name Comments Coronary artery disease Father Diabetes Mother Brain cancer Sister 1 Relation Name Status Comments Father Mother Sister 1 Sister 2 Alive Social History Tobacco Use Types Packs/Day Years Used Date Smoking Tobacco: Every Day Cigarettes Smokeless Tobacco: Never Alcohol Use Standard Drinks/Week Comments Yes 0 (1 standard drink = 0.6 oz pur e alcohol) Sex and Gender Information Value Date Recorded Sex Assigned at Not on file Legal Sex Male 12:52 PM EST Gender Identity Not on file Sexual Orientation Not on file Obstetrics History Last Filed Vital Signs Vital Sign Reading Time Taken Comments Blood Pressure 144/88 06/10/2023 11:24 AM EST Pulse 102 06/10/2023 11:24 AM EST Temperature - - Respiratory Rate - - Oxygen Saturation - - Inhaled Oxygen Concentration - - Weight 77.6 kg (171 lb) 06/18/2023 1:12 PM EST Height 177.8 cm (5' 10 ) 06/18/2023 1:12 PM EST Body Mass Index 24.54 06/18/2023 1:12 PM EST Plan of Treatment Health Maintenance Due Date Last Done Comments DTaP,Tdap,and Td Vaccines (1 - Tdap) 2005 Hepatitis B Vaccines (1 of 3 - 19+ 3-dose series) 2005 Pneumococcal Vaccine: Pediat rics (0 to 5 Years) and At-Risk Patients (6 to 64 Years) (1 of 2 - PCV) 2005 Cholesterol Screening (Lipid Panel) 04/27/2022 Hepatitis C Screening 04/27/2022 Social Influencers of Health Screening 04/27/2022 COVID-19 Vaccine (1 - 2023-2 5 season) 2024 Influenza Vaccine (Season Ended) 2025 Depression Screening 06/03/2025 06/03/2024 HIV Screening Completed 12/03/2021 HIB Vaccines Aged Out No longer eligi ble based on patient's age to complete this topic HPV Vaccines Aged Out No longer eligi ble based on patient's age to complete this topic Hepatitis A Vaccines Aged Out No long er eligible based on patient's age to complete this topic IPV Vaccines Aged Out No longer eligi ble based on patient's age to complete this topic MMR Vaccines Aged Out No longer eligi ble based on patient's age to complete this topic Meningococcal ACWY Vaccine Aged Out N o longer eligible based on patient's age to complete this topic Meningococcal B Vaccine Aged Out No l onger eligible based on patient's age to complete this topic RSV Immunization Patients Un omer 20 months Aged Out No longer eligible b ased on patient's age to complete this topic Varicella Vaccines Aged Out No longer eligible based on patient's age to complete this topic Procedures Procedure Name Priority Date/Time Associated Diagnosis Comments HIV SCREENING Routine 12/03/2021 from Last 3 Months or Most Recently Relevant to Health Maintenance Results * HIV Screening (12/03/2021) [facility] HIV Screening Abstracted [facility] Provider HEALTH MAINTENANCE Final Result from Last 3 Months or Most Recently Relevant to Health Maintenance Insurance MEDICAID - [place] Care Teams Blacktop Spreader Relationship Specialty Start Date End Date Manny Segal MD [address] [place] [address] PCP - General Internal Medicine 08/30/21
--- OUTSIDE RECORDS SUMMARY | 2024-09-09 10:26 | XMS_ITS ---
Author Name [facility] Organization Unknown Care Team Organization Name Specialty Phone Email Start Date End [facility] ([facility]) 2023 [facility] 03/19/2022
--- OUTSIDE RECORDS SUMMARY | 2024-09-09 10:26 | XMS_ITS | Encounter Summary ---
Author Organization [facility] Address [address] [place] [address] [address] [place] [address] Care Team Providers Care Improvement Specialist Name Role Phone Rochelle Ortega CNP Primary Care Provider [phone] Reason for Visit * Reason Comments Cough Encounter Details Date Type Department Care Team (Late st Contact Info) Description 09/09/2024 9:15 AM EDT Office Visit [facility] [address] [place] [address] Rochelle Ortega CNP [address], [place] [id number] Asthma in adult, unspecified asthma severity, with acute exacerbation (Primary Dx); Cough, unspecified type; Atopic dermatitis, unspecified type; Seasonal allergies Social History Tobacco Use Types Packs/Day Years Used Date Smoking Tobacco: Some Days Cigarettes Alcohol Use Standard Drinks/Week Comments Defer 0 (1 standard drink = 0.6 oz pur e alcohol) Depression Answer Date Recorded Patient Health Questionnaire-9 Score 21 06/03/2024 Patient Health Questionnaire-9 Score 21 06/03/2024 Last PHQ-9: Questionnaire Data Not on file 0 06/03/2024 Housing Stability Answer Date Recorded What is your housing situation today? I am not s ure 06/03/[address] you li ve. Do you have problems with any of the following? None of the above 06/03/2024 Food Insecurity Answer Date Recorded Within the past 12 months, y ou worried that your food would run out before you got money to buy more: Never True 2024 Within the past 12 months,th e food you bought just didn't last and you didn't have enough money to get more: Sometimes True 06/03/2024 Transportation Answer Date Recorded In the past 12 months, has l ack of transportation kept you from medical appts, meetings, work or from getting things needed for daily living? Yes, it has kept me from medical appointments or getting medications.;Yes, it has kept me from non-medical meetings, work, or getting things that I need 06/03/2024 Utilities Answer Date Recorded In the past 12 months, has t he electric, gas, oil or water company threatened to shut off services in your home? No 06/03/2024 Depression Answer Date Recorded Patient Health Questionnaire-2 Score 5 06/03/2024 Internet Access Answer Date Recorded Internet Access Q1 Yes 06/03/2024 Internet Access Q2 Not on file 06/03/2024 Sex and Gender Information Value Date Recorded Sex Assigned at Male 06/09/2023 2:27 PM EST Legal Sex Male 1:46 PM EST Gender Identity Male 06/09/2023 2:27 PM EST Sexual Orientation Choose not to disclose 2023 8:34 AM EST documented as of this encounter Last Filed Vital Signs Vital Sign Reading Time Taken Comments Blood Pressure 122/82 09/09/2024 9:29 AM EDT Pulse 95 09/09/2024 9:29 AM EDT Temperature 36.6 ??C (97.9 ??F) 09/09/2024 9:29 AM ED T Respiratory Rate 20 09/09/2024 9:29 AM EDT Oxygen Saturation 96% 09/09/2024 9:29 AM EDT Inhaled Oxygen Concentration - - Weight 88.4 kg (194 lb 12.8 oz) 09/09/2024 9:29 AM EDT Height - - Body Mass Index - - documented in this encounter Plan of Treatment Upcoming Encounters Date Type Department Care Team (Late st Contact Info) Description 11/07/2024 10:00 AM EDT Office Visit [facility] [address] [place] [address] Joya Mahan Scheduled Orders Name Type Priority Associated Diagnoses Orde r Schedule XR Chest 2 Views Imaging Routine Cough, unspecified type Expected: 09/09/2024, Expires: 09/09/2025 documented as of this encounter Procedures Procedure Name Priority Date/Time Associated Diagnosis Comments POCT RSV (ID NOW RAPID ANTIGEN) Routine 09/09/2024 9:42 AM EDT Cough, unspecified type POCT INFLUENZA B Routine 09/09/2024 9:38 AM EDT Cough, unspecified type POCT RAPID COVID ANTIGEN Routine 09/09/2024 9:34 AM EDT Cough, unspecified type documented in this encounter Results * POCT Rapid RSV [place] ID NOW (09/09/2024 9:42 AM EDT) [facility] RSV Rapid Ag POC Negative Negative QC Media Lot # [id number] Lot# Expiration Date ,026 Swab 09/09/2024 9:42 AM EDT Result [facility] POINT OF CARE TEST ENTER/ EDIT ORDERABLES Final Result * POCT Rapid Influenza B OSOM (09/09/2024 9:38 AM EDT) [facility] Rapid Influenza B Ag Negative Negative, Indeterminate QC Media Lot # [id number] Lot# Expiration Date [id number] Swab 09/09/2024 9:38 AM EDT Result [facility] POINT OF CARE TEST ENTER/ EDIT ORDERABLES Final Result * POCT Rapid Covid-19 BinaxNOW (09/09/2024 9:34 AM EDT) [facility] Rapid COVID Ag Negative QC Media Lot # [id number] Lot# Expiration Date 3,,026 Swab 09/09/2024 9:34 AM EDT Result [facility] POINT OF CARE TEST ENTER/ EDIT ORDERABLES Final Result documented in this encounter Visit Diagnoses Diagnosis Asthma in adult, unspecified asthma severity, with acute exacerbation- Primary Cough, unspecified type Atopic dermatitis, unspecified type Seasonal allergies Allergic rhinitis, cause unspecified documented in this encounter Additional Health Concerns Assessment Noted Time PHQ-9 Depression Total Score: 21 06/03/2 025 9:54 AM EST documented as of this encounter Care Teams Improvement Specialist Relationship Specialty Start Date End Date Rochelle Ortega CNP [address] [place] [address] PCP - General Family Medicine 06/03/24 documented as of this encounter
--- OUTSIDE RECORDS SUMMARY | 2024-09-09 10:26 | XMS_ITS | Clinical Summary ---
Author Organization [employer] Address [address] [place] [address] 7[address] [place] [address] Care Team Providers Care Textile Bag Sewer Name Role Phone Rochelle Ortega FIELD CROP FARMER Primary Care Provider [phone] Allergies Active Allergy Reactions Criticality Noted Date Comments Ibuprofen 04/12/2024 Acetaminophen 04/12/2024 Medications chlorhexidine (Peridex) 0.12 % solution RINSE MOUTH WITH 15ML (1 CAPFUL) FOR 30 SECONDS IN MORNING AND EVENING AFTER BRUSHING, THEN SPIT 4 Active folic acid (Folvite) 1 MG tablet Take 1 mg by mouth. 2 Active levETIRAcetam (Keppra) 500 MG tablet Take 1 tablet (500 mg) by mouth 2 times daily. 60 tablet 11 5 06/03/19 26 Active DULoxetine (Cymbalta) [address] capsuleIndication s:Chronic bilateral low back pain with bilateral sciatica Take 1 capsule (30 mg) by mouth at bedtime for 7 days, THEN 2 capsules (60 mg) at bedtime. Do not crush or chew.. 67 capsule 5 Active predniSONE (Deltasone) 20 MG tabletIndications :Cough, unspecified type Take 1 tablet (20 mg) by mouth 2 times daily for 5 days. 10 tablet 5 09/15/19 25 Active albuterol 108 (90 Base) MCG/ACT inhalerIndication s:Asthma in adult, unspecified asthma severity, with acute exacerbation Inhale 2 puffs every 4 (four) hours if needed for wheezing. 18 g 5 09/10/19 26 Active Spacer/Aero-Holdi ng Chambers deviceIndications :Asthma in adult, unspecified asthma severity, with acute exacerbation 1 Device Once per day. 1 Device 5 Active triamcinolone (Kenalog) 0.1 % ointmentIndicatio ns:Atopic dermatitis, unspecified type Apply topically 2 times daily. 80 g 5 Active loratadine (Claritin) 10 MG tabletIndications :Seasonal allergies Take 1 tablet (10 mg) by mouth Once per day. 30 tablet 11 5 09/10/19 26 Active Active Problems Problem Noted Date Diagnosed Date Chronic bilateral low back pain with bilateral s ciatica 06/03/2024 Assessment & Plan (06/03/2024 11:59 AM EST): Positive straight leg test, abnormal gait, strength in BLE 5/5, neuropathy present in both feet. Pt LBP 02/24 today, no incontinence, changes in bowel movements, no saddle anesthesia. Will obtain update MRI of Lumbar spine Will refer to physical therapy Will refer to ortho to discuss surgical options Seizures 06/03/2024 Assessment & Plan (06/03/2024 12:05 PM EST): Will order EEG and refer to neurology for seizure evaluation Since seizure are uncontrolled, will treat for general onset seizures with Keppra 500 mg BID Pt will return next week for keppra level draw. F/u in 1 month to assess seizure activity Healthcare maintenance 06/03/2024 Assessment & Plan (06/03/2024 12:04 PM EST): Will get lipid level Referral sent to [facility] center Advised patient to quit smoking and drinking alcohol, not interested in quitting at this time but will consider. Family history of cancer 06/03/2024 Assessment & Plan (06/03/2024 12:05 PM EST): Pt father from Leukemia, unsure of what type. Also had prostate cancer. Will refer to genetics for genetic testing Dental caries 06/11/2023 Open fracture of tooth 06/11/2023 Retained dental root 06/11/2023 Alcohol use disorder 09/15/2022 Anxiety and depression 09/15/2022 Assessment & Plan (06/03/2024 12:01 PM EST): consulted today for therapy and prescribing services Will start patient on Duloxetine 30 mg for 1 week and then can increase to 60mg as tolerated Alcohol withdrawal seizure with complication Alcoholic hepatitis without ascites 06/11/2022 Lumbar disc herniation 12/24/2021 Overview (06/02/2024): Last Assessment & Plan: Patient is s/p [...] he had to stop working at the [employer]. He started prednisone on Thursday, has not seen much improvement over the last 5 or 6 days. Years ago he tried acupuncture, preop he tried right L4, left L3 TFE's. Patient had lumbar spine x-rays 06/10/2023 at [facility] that looks good, no significant degenerative changes [...] completed. Abnormal MRI, lumbar spine 12/17/2021 Overview (06/03/2024): Last MRI 06/2023: Mild degenerative changes of the lumbar spine. Several mild foraminal stenosis. No spinal stenosis. Abnormal MRI 04/2022 IMPRESSION: Degenerative disc disease, most prominent at the L4-L5 level as described. Abnormal STIR hyperintense signal and enhancement in the right facet joint and paraspinal muscles extending up to subcutaneous tissues at L4-L5 level, the possibility of infectious etiology cannot be excluded. Recommend clinical and laboratory correlation. Assessment & Plan (06/08/2024 12:28 PM EST): Positive straight leg test, abnormal gait, strength in BLE 5/5, neuropathy present in both feet. Pt LBP 10/10 today, no incontinence, changes in bowel movements, no saddle anesthesia. Will obtain update MRI of Lumbar spine Will refer to physical therapy Will refer to neurosurgery to discuss surgical options Anemia 12/04/2021 Elevated LFTs 12/04/2021 Encounters Date Type Department Care Team Description 09/09/2024 9:15 AM EDT Office Visit [facility] MEDICINE [address] [place] [address] Rochelle Ortega CNP Asthma in adult, unspecified asthma severity, with acute exacerbation (Primary Dx); Cough, unspecified type; Atopic dermatitis, unspecified type; Seasonal allergies 09/09/2024 Travel 09/08/2024 Telephone [facility] MEDICINE [address] [place] [address] Ayana Saucedo MA chartprep 09/08/2024 Telephone [facility] MEDICINE [address] [place] [address] Rochelle Ortega CNP Nurse Triage 08/29/2024 Telephone [facility] OPTOMETRY [address] [place], [place] [phone] Jodie Lawton OD 08/17/2024 Population Health Risk Score Formerly [facility] Care [facility] ([facility]) Department [address] [id number] Provider, Population Health Generic 07/13/2024 Telephone [facility] MEDICINE [address] [place] [address] Rochelle Ortega CNP Paperwork/Forms from Last 3 Months Social History Tobacco Use Types Packs/Day Years Used Date Smoking Tobacco: Some Days Cigarettes Tobacco Cessation:Ready to Q uit: Not Asked; Counseling Given: Not Answered Alcohol Use Standard Drinks/Week Comments Defer 0 [...] not to disclose 2023 8:34 AM EST Last Filed Vital Signs Vital Sign Reading [...] - - Body Mass Index - - Plan of Treatment Upcoming Encounters Date Type Department Care Team (Late st Contact Info) Description 11/07/2024 10:00 AM EDT Office Visit [facility] ADULT DENTAL [address] [place] [address] Joya Mahan Health Maintenance Due Date Last Done Comments HIV Screening 1986 Lipid Panel 1986 Alcohol/Substance Use Screening 1998 Family Planning (PISQ) 2001 Hepatitis C Screening 2004 DTaP/Tdap/Td Vaccines (1 - Tdap) 2005 Hepatitis A Vaccines (1 of 2 - Risk 2-dose series) 2005 Hepatitis B Vaccines (1 of 3 - 19+ 3-dose series) 2005 Pneumococcal Vaccine: Pediatrics (0 to 5 Years) and At-Risk Patients (6 to 49) Years) (1 of 2 - PCV) 2005 COVID-19 Vaccine ( - 2023-2 5 season) 2024 Influenza Vaccine (#1) 2024 Dental Oral Exam 11/05/2024 05/06/2024, 06/16/2023 Dental Prophylaxis 11/05/2024 05/06/2024, 06/16/2023 Tobacco Screening 05/06/2025 05/06/2024 Dental X-Ray: Bitewings 05/07/2025 05/06/20 24, 06/16/2023 Depression Screening 06/03/2025 06/03/2024, 06/03/2024 SDOH Screening 06/03/2025 06/03/2024 Dental X-Ray: Full Mouth 06/17/2026 06/16/2023 Zoster Vaccines (1 of 2) 2036 RSV Patients and Patients Aged 60 years or older (1 - 1-dose 75+ series) 2061 HIB Vaccines Aged Out No longer eligi ble based on patient's age to complete this topic HPV Vaccines Aged Out No longer eligi ble based on patient's age to complete this topic IPV Vaccines Aged Out No longer eligi ble based on patient's age to complete this topic Meningococcal Vaccine Aged Out No lisa dallas eligible based on patient's age to complete this topic RSV under 20 months Aged Out No longe r eligible based on patient's age to complete this topic Rotavirus Vaccines Aged Out No longer eligible based on patient's age to complete this topic Procedures Procedure Name Priority Date/Time Associated Diagnosis Comments POCT RSV (ID NOW RAPID ANTIGEN) Routine 09/09/2024 9:42 AM EDT Cough, unspecified type POCT INFLUENZA B Routine 09/09/2024 9:38 AM EDT Cough, unspecified type POCT RAPID COVID ANTIGEN Routine 09/09/2024 9:34 AM EDT Cough, unspecified type AMB REFERRAL TO NEUROLOGY Routine 08/11/2024 Chronic bilateral low back pain with bilateral sciatica PROPHYLAXIS - ADULT Routine 05/06/2024 1 1:00 AM EST Dental calculus Dental plaque BITEWINGS - 4 RADIOGRAPHIC IMAGES Routine 05/06/2024 9:30 AM EST PERIODIC ORAL EVALUATION - ESTABLISHED PATIENT Routine 05/06/2024 9:30 AM EST INTRAORAL - COMPLETE SERIES OF RADIOGRAPHIC IMAGES Routine 06/16/2023 10:00 AM EST Defective dental mosque with open interproximal contact Periodontal disease Dental caries Dental calculus from Last 3 Months or Most Recently Relevant to Health Maintenance Results * POCT Rapid RSV TH[place]ODEAUX ID NOW (09/09/2024 9:42 AM EDT) RSV Rapid Ag POC Negative Negative QC Media Lot # [id number] Lot# Expiration Date [id number] Swab 09/09/2024 9:[address] [facility] POINT OF CARE TEST ENTER/ EDIT ORDERABLES Final Result * POCT Rapid Influenza B OSOM (09/09/2024 9:38 AM EDT) Rapid Influenza B Ag Negative Negative, Indeterminate QC Media Lot # [id number] Lot# Expiration Date [id number] Swab 09/09/2024 9:38 AM EDT [facility] POINT OF CARE TEST ENTER/ EDIT ORDERABLES Final Result * POCT Rapid Covid-19 BinaxNOW (09/09/2024 9:34 AM EDT) Rapid COVID Ag Negative QC Media Lot # [id number] Lot# Expiration Date [id number] Swab 09/09/2024 9:34 AM EDT [facility] POINT OF CARE TEST ENTER/ EDIT ORDERABLES Final Result * Referral to Neurology (08/11/2024) [facility] OUTPATIENT REFERRAL ORDER AYAH Final Result from Last 3 Months Insurance C[facility] MEDICAID STAND ADULT Care Teams Textile Bag Sewer Relationship Specialty Start Date End Date Rochelle Ortega CNP [address] [place] [address] PCP - General Family Medicine 06/03/24
--- OUTSIDE RECORDS SUMMARY | 2024-09-09 10:26 | XMS_ITS | Encounter Summary ---
Author Organization [employer] Address [address] [place] [address] Care Team Providers Care Sheet Pile Hammer Operator Name Role Phone Rochelle Ortega CNP Primary Care Provider [phone] Encounter Details Date Type Department Care Team (Latest Contact Info) Description 09/09/2024 Travel Social History Tobacco Use Types Packs/Day Years [...] AM EST documented as of this encounter Plan of Treatment Upcoming Encounters Date Type Department Care Team (Late st Contact Info) Description 11/07/2024 10:00 AM EDT Office Visit [facility] ADULT DENTAL [address] [place] [address] Joya Mahan documented as of this encounter Visit Diagnoses Not on filedocumented in this encounter Additional Health Concerns Assessment Noted Time PHQ-9 Depression Total Score: 21 025 9:54 AM EST documented as of this encounter Care Teams Sheet Pile Hammer Operator Relationship Specialty Start Date End Date Rochelle Ortega CNP [address] [place] [address] PCP - General Family Medicine 06/03/24 documented as of this encounter
--- OUTSIDE RECORDS SUMMARY | 2024-09-09 10:27 | XMS_ITS | Encounter Summary ---
Author Organization [employer] Address [address] [place] [address] Care Team Providers Care Restaurant Mgr Name Role Phone Rochelle Ortega VASILIY Primary Care Provider [phone] Reason for Visit * Reason Onset Date Comments chartprep 09/08/2024 Encounter Details Date Type Department Care Team ([facility] st Contact Info) Description 09/08/2024 Telephone [facility] MEDICINE [address] [place] [phone] Ayana Saucedo MA chartprep Social History Tobacco Use Types Packs/Day Years [...] AM EST documented as of this encounter Miscellaneous Notes * Telephone Encounter - Ayana Saucedo MA - 09/08/2024 11:39 AM EDT Chart Prep Labs: not done Images: done Referrals: complete Vaccines due: yes Screenings: not applicable Overdue care gaps: SBIRT, Oral health screening, and Disability screen documented in this encounter Plan of Treatment Upcoming Encounters Date Type Department Care Team (Late st Contact Info) Description 11/07/2024 10:00 AM EDT Office Visit [facility] ADULT DENTAL [address] [place] [address] Joya Mahan documented as of this encounter Visit Diagnoses Not on filedocumented in this encounter Additional Health Concerns Assessment Noted Time PHQ-9 Depression Total Score: 21 025 9:54 AM EST documented as of this encounter Care Teams Restaurant Mgr Relationship Specialty Start Date End Date Rochelle Ortega CNP [address] [place] [address] PCP - General Family Medicine 06/03/24 documented as of this encounter
--- OUTSIDE RECORDS SUMMARY | 2024-09-09 10:27 | XMS_ITS | Encounter Summary ---
Author Organization [employer] Address [address] [place] [address] 7 [place] [address] Care Team Providers Care Safety Consultant Name Role Phone Rochelle Ortega CNP Primary Care Provider [phone] Reason for Visit * Reason Onset Date Comments Nurse Triage 09/08/2024 Encounter Details Date Type Department Care Team ([facility] st Contact Info) Description 09/08/2024 Telephone [facility] MEDICINE [address] [place], [place] [phone] Rochelle Ortega CNP [address] [place], [place] [phone] Nurse Triage Social History Tobacco Use Types Packs/Day Years [...] encounter Miscellaneous Notes * Telephone Encounter - Milady Fonseca RN - 09/08/2024 11:33 AM EDT called pt to triage, spoke to pt. pt states a couple of weeks duration of mostly dry cough with occasional mucous and intermittent wheezing. pt denies other illness symptoms, fevers, sore throat, significant congestion, allergy symptoms, severe or sustained sob, or other associated symptoms. pt speaking in full sentences, without significant pausing but having some wheezing. pt requesting appt with PCP and was given appt tomorrow with PCP at 9:15 for exam. advised home care: rest, fluids, steam, humidifier, and call back if worsening or new concerns. pt understands and agrees with plan. insurance verified. Protocol Used: Cough (Adult) Protocol-Based Disposition: See in Office or Video Visit within 3 Days Positive Triage Question: * Cough has been present for > 3 weeks * All higher-acuity triage questions were negative Care Advice Discussed: * Reassurance and Education - Cough * Cough Medicines * Cough Syrup With Dextromethorphan * Coughing Spells * Prevent Dehydration * Avoid Tobacco Smoke * Humidifier * Reasons To Call Back - Difficulty breathing - Cough lasts more than 3 weeks - Fever lasts more than 3 days - You become worse * Telephone Encounter - Saran Liriano - 09/08/2024 10:50 AM EDT Symptom: Cough Outcome: Schedule an urgent appointment (within 1 hour) or talk to a nurse or provider soon Reason: Wheezing (high-pitched whistling sound) The caller accepted this outcome. Contact pt at [phone] documented in this encounter Plan of Treatment Upcoming Encounters Date Type Department Care Team (Late st Contact Info) Description 11/07/2024 10:00 AM EDT Office Visit [facility] ADULT DENTAL [address] [place] [address] Joya Mahan documented as of this encounter Visit Diagnoses Not on filedocumented in this encounter Additional Health Concerns Assessment Noted Time PHQ-9 Depression Total Score: 21 025 9:54 AM EST documented as of this encounter Care Teams Safety Consultant Relationship Specialty Start Date End Date Rochelle Ortega CNP [address] [place] [address] PCP - General Family Medicine 06/03/24 documented as of this encounter
--- OUTSIDE RECORDS SUMMARY | 2024-09-09 10:27 | XMS_ITS | Encounter Summary ---
Author Organization [employer] [facility] Address [address] [place] [address] 7 h Floor [place] [phone] Care Team Providers Care Medical Secretary Name Role Phone Rochelle Ortega CNP Primary Care Provider [phone] Encounter Details Date Type Department Care Team (Late st Contact Info) Description 07/02/2023 Abstract [facility] ADULT DENTAL [address] [place] [address] Maikel Hollowayaris [address] [place] [address] Social History Tobacco Use Types Packs/Day Years [...] Description 11/07/2024 10:00 AM EDT Office Visit [facility] ADULT DENTAL [address] [place] [address] Joya Mahan documented as of this encounter Visit Diagnoses Not on filedocumented in this encounter Care Teams Medical Secretary Relationship Specialty Start Date End Date Rochelle Ortega CNP [address] [place] [address] PCP - General Family Medicine 06/03/24 documented as of this encounter
--- OUTSIDE RECORDS SUMMARY | 2024-09-09 10:27 | XMS_ITS | Encounter Summary ---
Author Organization [facility] Address [address] [place] [address] Care Team Providers Care Freight Sorter Name Role Phone Manny Segal MD Primary Care Provider [phone] Reason for Visit * Reason Onset Date Comments Hospital Follow-up 04/11/2024 Encounter Details Date Type Department Care Team ([facility] st Contact Info) Description 04/11/2024 Nurse Triage Adult Medicine [address] [phone] Manny Segal MD [address] [place] [id number] Hospital Follow-up Social History Tobacco Use Types Packs/Day Years Used Date Smoking Tobacco: Every Day Cigarettes Smokeless Tobacco: Never Alcohol Use Standard Drinks/Week Comments Yes 0 (1 standard drink = 0.6 oz pur e alcohol) Sex and Gender Information Value Date Recorded Sex Assigned at Not on file Legal Sex Male 12:52 PM EST Gender Identity Not on file Sexual Orientation Not on file documented as of this encounter Progress Notes * Corine Hernandez RN - 04/11/2024 4:13 PM EST Reason for Disposition ??? Severe headache (Note: Most people have a headache after a seizure.) Answer Assessment - Initial Assessment Questions 1. ONSET: When did the seizure occur? Having seizures daily for 2 weeks last one was today 2. DURATION: How long did the seizure last (or how long has it been happening)? (e.g., seconds, minutes) Note: Most seizures last less than 5 minutes. Unknown , not witnessed today, in past partner states minutes 3. DESCRIPTION: Describe what happened during the seizure. Did the body become stiff? Was there any jerking? Did they lose consciousness during the seizure? Stiff and jerking all over 4. CIRCUMSTANCE: What was the person doing when the seizure began? Occurs at all times 5. MENTAL STATUS AFTER SEIZURE: Does the person seem more groggy or sleepy? Does the person knowwho they are, who you are, and where they are now? Sleepy and out of it 6. PRIOR SEIZURES: Has the person had a seizure (convulsion) before? (e.g., epilepsy, other cause) If Yes, ask: When was the last time? and What happened last time? Unknown 7. EPILEPSY: Does the person have epilepsy? Note: Check for medical ID bracelet. non 8. MEDICINES: Does the person take anticonvulsant medications? (e.g., Yes, No; missed doses, any recent changes) no 9. INJURY: Was the person hurt or injured during the seizure? (e.g., hit their head, bit their tongue) no 10. OTHER SYMPTOMS: Are there any other symptoms? (e.g., fever, headache) Pt has not been ill 11. : Is there any chance you are ? When was your last menstrual period? N/A Protocols used: [id number]-PD * Kirsten Velasquez - 04/11/2024 3:49 PM EST Patient call requires triage: Symptoms patient is presenting: Patient went to [facility] for seizure and left AMA. How long has patient had these symptoms?: since yesterday For ALL patients calling to schedule any appointment (routine, sick visit, follow up, consult, etc.) in the outpatient setting please ask the following questions: Do you have fever of higher than 101, sore throat with difficulty swallowing or severe shortness ofbreath? no If YES to any of these above symptoms, send a message to triage and do not book. Red dot. If no, an audio or video visit should be booked. Have you had close contact with someone with Coronavirus in the last 14 days? no Have you traveled abroad? no Have you traveled recently to another state outside of [place], [place], [place], [place], [place], [place], [place]? no o If yes, did you quarantine for 14 days or have a negative covid test? no If yes to any of the above, patient is not to be scheduled in office until after 14 day quarantine or negative covid test. If pain or injury related was it due to an accident at work or from a motor vehicle accident? If yes, date of accident/Injury: No If yes, gather 3rd republican insurance information [employer] Party Information: not applicable PCP: Manny Segal MD Payor: / No coverage found. documented in this encounter Plan of Treatment Not on file documented as of this encounter Visit Diagnoses Not on filedocumented in this encounter Care Teams Freight Sorter Relationship Specialty Start Date End Date Manny Segal MD [address] [place] [address] PCP - General Internal Medicine 08/30/21 documented as of this encounter
--- OUTSIDE RECORDS SUMMARY | 2024-09-09 10:27 | XMS_ITS | Encounter Summary ---
Author Organization [employer] Address [address] [place] [address] [address] [place] [address] Care Team Providers Care Foley Artist Name Role Phone Rochelle Ortega VASILIY Primary Care Provider [phone] Reason for Visit * Reason Onset Date Comments medication 06/11/2023 Encounter Details Date Type Department Care Team (Late st Contact Info) Description 06/11/2023 Telephone [facility] ADULT DENTAL [address] [place], [place] [phone] Abe Troy DDS [address] [place], [place] [phone] medication Social History Tobacco Use Types Packs/Day Years [...] encounter Miscellaneous Notes * Telephone Encounter - Gisele Singleton - 06/12/2023 9:12 AM EST Patient checking in on medication again. It was dictated as having been sent but in chart it indicates none on medication sent. Patient was seen with [employer] student. Waiting for Dr. Troy response DR * Telephone Encounter - Gisele Singleton - 06/12/2023 9:06 AM EST Did follow on the same thread of the original message that I sent. Dr. Troy did respond so he is aware the message is for him. I am not sure how the messages come in through to providers end but I am sending it on pool as we were instructed to do so. Dr. Troy is who I sent it to. * Telephone Encounter - Vadim Clark DMD - 06/12/2023 8:10 AM EST Please follow up with Dr. Troy * Telephone Encounter - Gisele Singleton - 06/11/2023 3:59 PM EST Thank you but I checked the chart and it hasn't made it to the pharmacy. I had one of the pharmacy reps check for me here in the [facility] center and nothing yet. * Telephone Encounter - Gisele Singleton - 06/11/2023 2:29 PM EST Script for antibiotics hasn't made it to the pharmacy. Patient is inquiring. documented in this encounter Plan of Treatment Upcoming Encounters Date Type Department Care Team (Late st Contact Info) Description 11/07/2024 10:00 AM EDT Office Visit [facility] ADULT DENTAL [address] [place] [address] Joya Mahan documented as of this encounter Visit Diagnoses Not on filedocumented in this encounter Care Teams Foley Artist Relationship Specialty Start Date End Date Rochelle Ortega CNP [address] [place] [address] PCP - General Family Medicine 06/03/24 documented as of this encounter
== END 2024-09-09 10:00 | disposition home or self-care (01) ==
LOC: HO.HHCX 09:59
DX: R05.9 Cough, unspecified (principal)
CPT/HCPCS: 71046

== ENCOUNTER → 2024-09-09 10:00 | Outpatient (BNV) | payer MEDICAID, SELFPAY | PROVIDERS: Visit Provider Radiology Diagnostic Radiology | DX: R06.02 Shortness of breath (principal); R06.2 Wheezing | CPT/HCPCS: 71046 ==